=== PATIENT | male | born 1995 | race Two or more races ===

== ENCOUNTER 2020-06-02 12:14 | Emergency (ER) | payer MEDICAID, OTHER ==
[~2020-06-02] VITALS: Ht 167.6 cm; Wt 50.0 kg
--- NOTE | 2020-06-02 12:16 | NUR ---
Jono farooq in [facility] - 06/02/20 at 1218 by [id number] PIV ESTABLISHED PT TO GO TO [facility].
--- NOTE | 2020-06-02 12:33 | NUR ---
PRESENTS WITH RECTAL BLEEDING X 4 DAYS. NO TRAUMA/ NO HX OF SIMILIAR HX VSS, GOOD COLOR GIVEN [address] ROUTE
[2020-06-02] MEDS ORDERED: L.E.T SOLUTION TP ONE ×2 (13:00→13:05)
[2020-06-02 13:18] LABS: BASOPHILS # (AUTO) 0.05 x10^3/uL (0-0.1); BASOPHILS % (AUTO) 1 % (0-1); EOSINOPHILS # (AUTO) 0.08 x10^3/uL (0-0.4); EOSINOPHILS % (AUTO) 1 % (1-7); LYMPHOCYTES # (AUTO) 1.72 x10^3/uL (1-3.4); LYMPHOCYTES % (AUTO) 21 % (22-44); MD NO; MEAN CORPUSCULAR HEMOGLOBIN 31.8 pg (27.5-34.5); MEAN CORPUSCULAR HGB CONC 33.3 g/dL (33.2-36.2); MEAN CORPUSCULAR VOLUME 95.3 fL (81-97); MEAN PLATELET VOLUME 7.9 fL (7.4-10.4); MONOCYTES # (AUTO) 0.49 x10^3/uL (0.2-0.8); MONOCYTES % (AUTO) 6 % (2-9); NEUTROPHILS # (AUTO) 5.97 x10^3/uL (1.8-6.8); NEUTROPHILS % (AUTO) 72 % (42-75); PLATELET COUNT 268 x10^3/uL (130-400); RED BLOOD COUNT 4.87 x10^6/uL (4.38-5.82); RED CELL DISTRIBUTION WIDTH 12.8 % (9.4-14.8)
[2020-06-02 13:26] LABS: ALBUMIN 3.4 g/dL (3.4-5.0); ANION GAP 7 mmol/L (5-15); CALCIUM 8.6 mg/dL (8.5-10.1); CHLORIDE 110 mmol/L (98-107); CREATININE 0.84 mg/dL (0.7-1.3)
[2020-06-02 13:58] VITALS: BP 104/50
--- NOTE | 2020-06-02 14:00 | NUR ---
PT MEDICATED PER NOV. PT MAKING STRANGE COMMENTS, PT EDUCATED SEVERAL TIMES ON MEDICATION AND WHAT ITS USED FOR, PT DID NOT KNOW WHERE THE MEDICATION WAS TO BE APPLIED WHEN THE WORD RECTAL WAS USED
== END 2020-06-02 14:53 | disposition home or self-care (01) ==
LOC: ED 13:44
DX: K64.4 Residual hemorrhoidal skin tags (principal); R10.2 Pelvic and perineal pain; R42 Dizziness and giddiness
CPT/HCPCS: 36415; 80048; 82040; 85025; 99283